=== PATIENT | female | born 1960 | race Two or more races ===

== ENCOUNTER → 2017-09-27 | Day surgery (SDC) | payer OTHER ==
[~2017-09-27] MED LIST: NEURONTIN300 MG; ORPHENADRINE C100 MG PO; PERCOCET 5/3251 TAB PO; RECTICARE30 GM TP; SINGULAIR10 MG; ZYRTEC10 M3
== END | disposition home or self-care (01) ==
LOC: ADM 09-21 15:00 → AMB-ENDOS 06:50 → CIR.AMB 09-28 15:00
DX: K57.30 Diverticulosis of large intestine without perforation or abscess without bleeding (principal)

== ENCOUNTER → 2017-09-28 06:58 | Outpatient (CLI) | payer OTHER | END | disposition home or self-care (01) | LOC: LAB 06:58 | DX: Z80.3 Family history of malignant neoplasm of breast (principal); G47.33 Obstructive sleep apnea (adult) (pediatric); D72.828 Other elevated white blood cell count; J45.20 Mild intermittent asthma, uncomplicated; Z79.890 Hormone replacement therapy; K57.50 Diverticulosis of both small and large intestine without perforation or abscess without bleeding; K59.01 Slow transit constipation; K59.4 Anal spasm; K60.2 Anal fissure, unspecified; L90.0 Lichen sclerosus et atrophicus; D50.0 Iron deficiency anemia secondary to blood loss (chronic); D51.8 Other vitamin B12 deficiency anemias; I10 Essential (primary) hypertension; D55.0 Anemia due to glucose-6-phosphate dehydrogenase [G6PD] deficiency; D51.1 Vitamin B12 deficiency anemia due to selective vitamin B12 malabsorption with proteinuria; D51.0 Vitamin B12 deficiency anemia due to intrinsic factor deficiency; E06.3 Autoimmune thyroiditis; E03.9 Hypothyroidism, unspecified ==

== ENCOUNTER 2017-09-28 08:38 | Outpatient (CLI) | payer OTHER | END 2017-09-28 08:53 | disposition home or self-care (01) | LOC: SONOGRAMA 08:38 | DX: E04.2 Nontoxic multinodular goiter (principal); Z80.3 Family history of malignant neoplasm of breast; G47.33 Obstructive sleep apnea (adult) (pediatric); D72.828 Other elevated white blood cell count; J45.20 Mild intermittent asthma, uncomplicated; Z79.890 Hormone replacement therapy; K57.50 Diverticulosis of both small and large intestine without perforation or abscess without bleeding; K59.01 Slow transit constipation; K59.04 Chronic idiopathic constipation; K60.2 Anal fissure, unspecified; L90.0 Lichen sclerosus et atrophicus; E06.3 Autoimmune thyroiditis ==

== ENCOUNTER 2018-09-18 05:55 | Day surgery (SDC) | payer OTHER ==
[~2018-09-18 05:55] MED LIST changes: +DIALYVITE 8001 EACH PO; +FIORICET PO; +MAGNESIUM200 MG PO; +NORFLEX PO
[2018-09-18] MEDS ORDERED: ULTRACET PO (09:47)
[2018-09-18] MEDS ORDERED: NEURONTIN300 MG PO (09:48)
== END 2018-09-18 15:20 | disposition home or self-care (01) ==
LOC: CIR.AMB 05:55
DX: K60.1 Chronic anal fissure (principal); K64.1 Second degree hemorrhoids; K60.5 Anorectal fistula

== ENCOUNTER 2018-09-26 16:35 | Inpatient (IN) | payer OTHER ==
[~2018-09-26] VITALS: Ht 152.4 cm; Wt 78.9 kg
[~2018-09-26 16:35] MED LIST changes: +NEURONTIN300 MG PO; +ULTRACET PO
[2018-09-27] MEDS ORDERED: BUTALBITAL-ACE1 EAC1 PO (09:19)
[2018-09-29] MEDS ORDERED: CIPRO500 MG PO (12:36)
[2018-09-29] MEDS ORDERED: METRONIDAZOLE500 MG PO (12:36)
[2018-09-29] MEDS ORDERED: TRAMADOL HCL50 MG PO (12:37)
[2018-09-29] MEDS ORDERED: RECTICARE30 GM TOP (14:08)
== END 2018-09-29 13:52 | disposition home or self-care (01) | DRG 349 ==
LOC: ER 16:35 → SEC-K 18:02 → SURH 18:02
PROVIDERS: ADMIT Surgery
PROC: 0D9Q7ZZ Drainage of Anus, Via Natural or Artificial Opening (ICD-10-PCS; principal; 2018-09-26 18:00)
DX: K61.0 Anal abscess (principal); K59.09 Other constipation; K64.8 Other hemorrhoids; D55.0 Anemia due to glucose-6-phosphate dehydrogenase [G6PD] deficiency; K57.30 Diverticulosis of large intestine without perforation or abscess without bleeding

== ENCOUNTER 2018-11-01 08:50 | Outpatient (CLI) | payer OTHER ==
[~2018-11-01 08:50] MED LIST changes: +BUTALBITAL-ACE1 EAC1 PO; +CIPRO500 MG PO; +METRONIDAZOLE500 MG PO; +RECTICARE30 GM TOP; +TRAMADOL HCL50 MG PO
== END 2018-11-01 10:06 | disposition home or self-care (01) ==
LOC: MRI 08:50
DX: K57.30 Diverticulosis of large intestine without perforation or abscess without bleeding (principal); K59.4 Anal spasm; K43.9 Ventral hernia without obstruction or gangrene; K60.1 Chronic anal fissure; K61.0 Anal abscess
CPT/HCPCS: 72197

== ENCOUNTER 2018-11-13 06:04 | Inpatient (IN) | payer OTHER ==
[~2018-11-13] VITALS: Ht 152.4 cm; Wt 78.0 kg
[2018-11-20] MEDS ORDERED: AMOX1TAB5 PO (10:19)
[2018-11-20] MEDS ORDERED: INTESTINEX680 M1 PO (10:20)
== END 2018-11-20 12:07 | disposition home or self-care (01) | DRG 348 ==
LOC: ER 06:04 → SURG 12:48 → SEC-K 12:48 → O/R 13:55 → SURG 18:26
PROVIDERS: ADMIT Surgery
PROC: 0HB9XZZ Excision of Perineum Skin, External Approach (ICD-10-PCS; 2018-11-13)
PROC: 3E0T3BZ Introduction of Anesthetic Agent into Peripheral Nerves and Plexi, Percutaneous Approach (ICD-10-PCS; 2018-11-13)
PROC: 0D9QX0Z Drainage of Anus with Drainage Device, External Approach (ICD-10-PCS; principal; 2018-11-13 15:00)
PROC: BW21ZZZ Computerized Tomography (CT Scan) of Abdomen and Pelvis (ICD-10-PCS; 2018-11-18)
DX: K61.0 Anal abscess (principal); B37.89 Other sites of candidiasis; K61.1 Rectal abscess; M62.830 Muscle spasm of back; K29.00 Acute gastritis without bleeding; Z88.1 Allergy status to other antibiotic agents; K59.09 Other constipation; K57.30 Diverticulosis of large intestine without perforation or abscess without bleeding

== ENCOUNTER 2019-06-11 05:25 | Day surgery (SDC) | payer OTHER ==
[~2019-06-11 05:25] MED LIST changes: +ADVIL100 MG PO; +AMOX1TAB5 PO; +INTESTINEX680 M1 PO; +MELATONIN5 M1 PO; +PROTONIX20 MG PO; +SINGULAIR10 MG PO
[2019-06-11] MEDS ORDERED: HIBICLENS118 ML TOP (08:40)
[2019-06-11] MEDS ORDERED: AMOX1TAB5 PO (09:20)
[2019-06-11] MEDS ORDERED: PERCOCET 5-3251 EACH PO (09:20)
== END 2019-06-11 14:35 | disposition home or self-care (01) ==
LOC: CIR.AMB 05:25 → ADM 10:00 → CIR.AMB 10:00
DX: K60.3 Anal fistula (principal)

== ENCOUNTER → 2020-06-09 | Outpatient (CLI) | payer OTHER ==
[~2020-06-09] MED LIST changes: +HIBICLENS118 ML TOP; +PERCOCET 5-3251 EACH PO
== END | disposition home or self-care (01) ==
LOC: TOM 10:29
PROVIDERS: ATTEND Surgery
DX: K76.0 Fatty (change of) liver, not elsewhere classified (principal); K57.32 Diverticulitis of large intestine without perforation or abscess without bleeding; K45.8 Other specified abdominal hernia without obstruction or gangrene; K57.90 Diverticulosis of intestine, part unspecified, without perforation or abscess without bleeding